=== PATIENT | male | born 1955 | race Caucasian/White ===

== ENCOUNTER → 2020-10-15 | Outpatient (CLI) | payer OTHER ==
[~2020-10-15] MED LIST: ASPIRIN325 MG PO; CLOPIDOGREL75 MG PO; COVID-19 VACC, MRNA(MODERNA)/PF 100 MCG/0.5 ML VIAL IM ONE; FAMOTIDINE20 MG PO; FISH OIL PO; GLIPIZIDE10 MG PO; LEVEMIR100 UNIT/1 INJ; LISINOPRIL2.5 MG PO; METOPROLOL PO; PRAVASTATIN SOD80 MG PO
== END | disposition home or self-care (01) ==
LOC: VACCPMC 16:24
DX: Z23 Encounter for immunization (principal); Z20.822 Contact with and (suspected) exposure to COVID-19
CPT/HCPCS: 91301

== ENCOUNTER → 2020-11-12 | Outpatient (CLI) | payer OTHER | END | disposition home or self-care (01) | LOC: VACCPMC 13:01 | DX: Z23 Encounter for immunization (principal); Z20.822 Contact with and (suspected) exposure to COVID-19 | CPT/HCPCS: 91301 ==